=== PATIENT | female | born 1980 | race Caucasian/White ===

== ENCOUNTER 2021-01-30 18:26 | Emergency (ER) | payer OTHER, SELFPAY ==
[2021-01-30 18:31] VITALS: BP 123/84; PULSE 94; RESP 18; TEMP 36.9; O2SAT 100
--- NOTE | 2021-01-30 18:45 | DI.RAD_ITS ---
Exam(s) XR SHOULDER LT COMPLETE 2+V EXAM: XR SHOULDER LT COMPLETE 2+V CLINICAL HISTORY: fall,. TECHNIQUE: 2D digital imaging was performed. COMPARISON: No exams were available for comparison FINDINGS: There is no evidence of acute fracture or dislocation. No abnormal soft tissue calcifications. Singh ohumeral and AC joints appear unremarkable. The subacromial space is not diminished. No adjacent ri b nor scapular fractures evident. IMPRESSION: No fracture evident. If clinically indicated follow-up MRI can be performed given the history here. DATA REPOSITORY: RADIATION DOSE DELIVERED:
--- NOTE | 2021-01-30 18:45 | DI.RAD_ITS ---
Exam(s) XR CHEST 2V PA LATERAL EXAM: XR CHEST 2V PA LATERAL CLINICAL HISTORY: left chest apin post fall. TECHNIQUE: 2D digital imaging was performed. COMPARISON: No exams were available for comparison FINDINGS: Heart size is normal. The mediastinum is not widened. Lungs are clear. No infiltrates nor pleural effusions. Artifact over the right upper lobe is noted which is most probably braided hair with ornament. IMPRESSION: No acute pulmonary findings. DATA REPOSITORY: RADIATION DOSE DELIVERED:
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
== END 2021-01-30 20:33 | disposition home or self-care (01) ==
PROVIDERS: Emergency Provider Physician Assistant; PCP Family Medicine
DX: S20.222A Contusion of left back wall of thorax, initial encounter (principal); S49.92XA Unspecified injury of left shoulder and upper arm, initial encounter; V18.0XXA Pedal cycle driver injured in noncollision transport accident in nontraffic accident, initial encounter; Y93.55 Activity, bike riding
CPT/HCPCS: 99284; 71046; 73030